=== PATIENT | female | born 2000 | race Caucasian/White ===

== ENCOUNTER 2020-02-01 00:25 | Inpatient (IN) | payer MEDICAID, OTHER ==
[~2020-02-01 00:25] MED LIST: Bupivacaine 0.25% 10 ML SDV ONE
[2020-02-01] MEDS ORDERED: Ampicillin 2 GM in Sodium Chloride 0.9% 100 ML IV ONE (00:37)
[2020-02-01] MEDS ORDERED: Lidocaine 1% 50 ML MDV INJECT ONE (00:37)
[2020-02-01] MEDS ORDERED: Sodium Chloride 0.9% 10 ML Syringe FLUSH PRN (00:37)
[2020-02-01] MEDS ORDERED: Calcium Carbonate 500 MG Tab.Chew PO PRN (00:37)
[2020-02-01] MEDS ORDERED: Ondansetron 4 MG/2 ML SDV IVPUSH PRN (00:37)
[2020-02-01] MEDS ORDERED: Oxytocin/Lactated Ringers 10 UNIT/1,000 ML BAG IV SCH ×3 (00:45→11:30)
[2020-02-01] MEDS ORDERED: Ampicillin 2 GM AdvVial IV ONE (01:11)
[2020-02-01] MEDS: Lactated Ringers 1,000 ML IV SCH ×4 (01:12→05:25)
[2020-02-01] MEDS ORDERED: Bupivacaine/fentaNYL/NS 100 ML Bag EPIDUR PRN (02:03)
[2020-02-01] MEDS ORDERED: diphenhydrAMINE 50 MG/ML SDV IVPUSH PRN (02:03)
[2020-02-01] MEDS ORDERED: fentaNYL 100 MCG/2 ML SDV EPIDUR PRN (02:03)
[2020-02-01] MEDS ORDERED: ePHEDrine 50 MG/ML SDV IVPUSH PRN (02:03)
--- NOTE | 2020-02-01 02:30 | PCM.PREANE ---
Preanesthetic Assessment - Procedure Proposed Procedure: epidural - Anesthesia/Transfusion/Family Hx Anesthesia History: Prior Anesthesia Without Reaction Family History of Anesthesia Reaction: No Transfusion History: No Prior Transfusion(s) - Review of Systems General: Fatigue Pulmonary: No Symptoms Cardiovascular: No Symptoms Gastrointestinal: Abdominal Pain (labor) Neurological: No Symptoms Other: Reports: None - Physical Assessment ASA Class: 2 Mental Status: Alert & Oriented x3 Airway Class: Mallampati = 1 Dentition: Reports: Normal Dentition Thyro-Mental Finger Breadths: 3 Mouth Opening Finger Breadths: 3 ROM/Head Extension: Full Lungs: Clear to Auscultation, Normal Respiratory Effort Cardiovascular: Regular Rate, Regular Rhythm - Lab Values: Laboratory Last Values WBC 11.99 K/mm3 (3.98-10.04) H 02/01/20 01:12 RBC 3.83 M/mm3 (3.98-5.22) L 02/01/20 01:12 Hgb 10.1 gm/dl (11.2-15.7) L 02/01/20 01:12 Hct 33.2 % (34.1-44.9) L 02/01/20 01:12 MCV 86.7 fl (79.4-94.8) 02/01/20 01:12 MCH 26.4 pg (25.6-32.2) 02/01/20 01:12 MCHC 30.4 g/dl (32.2-35.5) L 02/01/20 01:12 RDW Std Deviation 49.8 fL (36.4-46.3) H 02/01/20 01:12 Plt Count 212 K/mm3 (182-369) 02/01/20 01:12 MPV 13.0 fl (9.4-12.3) H 02/01/20 01:12 Neut % (Auto) 68.7 % (34.0-71.1) 02/01/20 01:12 Lymph % (Auto) 23.0 % (19.3-51.7) 02/01/20 01:12 [place] % (Auto) 6.8 % (4.7-12.5) 02/01/20 01:12 Eos % (Auto) 1.1 (0.7-5.8) 02/01/20 01:12 Baso % (Auto) 0.3 % (0.1-1.2) 02/01/20 01:12 Neut # (Auto) 8.25 K/mm3 (1.56-6.13) H 02/01/20 01:12 Lymph # (Auto) 2.76 K/mm3 (1.18-3.74) 02/01/20 01:12 [place] # (Auto) 0.81 K/mm3 (0.24-0.36) H 02/01/20 01:12 Eos # (Auto) 0.13 K/mm3 (0.04-0.36) 02/01/20 01:12 Baso # (Auto) 0.03 K/mm3 (0.01-0.08) 02/01/20 01:12 Urine Opiates Screen Negative (LSPVIN=941) 02/01/20 02:00 Ur Buprenorphine Scrn Negative (CUTOFF=10) 02/01/20 02:00 Ur Oxycodone Screen Negative (RMW2NA=961) 02/01/20 02:00 Urine Methadone Screen Negative (SMRAFY=214) 02/01/20 02:00 Ur Propoxyphene Screen Negative (JJHXPZ=043) 02/01/20 02:00 Ur Barbiturates Screen Negative (WWIELA=900) 02/01/20 02:00 Ur Tricyclics Screen Negative (GWOPIA=758) 02/01/20 02:00 Ur Phencyclidine Scrn Negative (CUTOFF=25) 02/01/20 02:00 Ur Amphetamine Screen Negative (KZUQTA=500) 02/01/20 02:00 U Methamphetamines Scrn Negative (YBEGBF=004) 02/01/20 02:00 U Benzodiazepines Scrn Negative (EFBXTI=652) 02/01/20 02:00 U Cocaine Metab Screen Negative (IKYQFO=176) 02/01/20 02:00 U Marijuana (THC) Screen Presumptive positive (CUTOFF=50) H 02/01/20 02:00 - Allergies Allergies/Adverse Reactions: Allergies Allergy/AdvReac Type Severity Reaction Status Date / Time No Known Allergies Allergy Verified 02/01/20 01:12 - Anesthesia Plan Pre-Op Medication Ordered: None - Acknowledgements Anesthesia Type Planned: Epidural Pt an Appropriate Candidate for the Planned Anesthesia: Yes Alternatives and Risks of Anesthesia Discussed w Pt/Guardian: Yes Pt/Guardian Understands and Agrees with Anesthesia Plan: Yes PreAnesthesia Questionnaire Gastrointestinal History: Reports: GERD - CURRENT (IN HOUSE) MEDS Current Meds: Current Medications Calcium Carbonate/Glycine (Tums) 1,000 mg PO Q2H PRN PRN Reason: Indigestion Diphenhydramine HCl (Benadryl) 25 mg IVPUSH Q6H PRN PRN Reason: Itching Ephedrine Sulfate (Ephedrine Sulfate) 5 mg IVPUSH ASDIRECTED PRN PRN Reason: HYPOTENTSION Fentanyl (Sublimaze) 100 mcg EPIDUR Q3H PRN PRN Reason: Pain Last Admin: 02/01/20 02:15 Dose: 100 mcg Fentanyl/Bupivacaine HCl (Fentanyl/Bupivacaine/Ns 2 Mcg-0.125% 100 Ml) 0 ml EPIDUR CONTINUOUS PRN PRN Reason: Pain Last Admin: 02/01/20 02:15 Dose: 100 ml Ampicillin Sodium 1 gm/ Sodium (Chloride) 100 mls @ 200 mls/hr IV Q4H SACHIN Lactated Ringer's (Ringers, Lactated) 1,000 mls @ 100 mls/hr IV ASDIRECTED SACHIN Last Admin: 02/01/20 02:20 Dose: 999 mls/hr Oxytocin/Lactated Ringer's (Pitocin In Lr 10 Units/1,000 Ml) 10 unit in 1,000 mls @ 500 mls/hr IV .CONTINUOUS SACHIN Ondansetron HCl (Zofran) 4 mg IVPUSH Q4H PRN PRN Reason: Nausea/Vomiting Sodium Chloride (Saline Flush) 10 ml FLUSH ASDIRECTED PRN PRN Reason: Keep Vein Open Discontinued Medications Ampicillin Sodium (Ampicillin) Confirm Administered Dose 2 gm IV .STK-MED ONE Stop: 02/01/20 01:12 Last Admin: 02/01/20 02:07 Dose: Not Given Ampicillin Sodium 2 gm/ Sodium (Chloride) 100 mls @ 200 mls/hr IV ONETIME ONE Stop: 02/01/20 01:06 Last Admin: 02/01/20 01:16 Dose: 200 mls/hr Lidocaine HCl (Xylocaine 1%) 20 ml INJECT ONETIME ONE Stop: 02/01/20 00:38
[2020-02-01] MEDS: Ampicillin 1 GM in Sodium Chloride 0.9% 100 ML IV SCH ×2 (05:03→16:31)
--- NOTE | 2020-02-01 10:09 | PCM.LDHP ---
L&D History of Present Illness - General Date of Service: 02/01/20 Admit Problem/Dx: Patient Status Order with Admit Dx/Problem 02/01/20 00:37 Patient Status [ADT] Routine Admission Diagnosis/Problem Admission Diagnosis/Problem Term Source of Information: Patient History Limitations: Reports: No Limitations - History of Present Illness Introduction:: 19 year old here with SROM. No contractions. Sparse care. One appointment in [place] followed by diagnosis of syphilis , hep c, trichomonas, and chlamydia. All treated. Syphilis treated during admissions x 3 at [facility]. 10/16/2020, 10/24/2020 and 11/01/2020. No titers on records from their results. Our titer on 01/21 was 1:16 History of drug use, social concerns. Does not have custody of other three children. Currently admits to marijuana use but no longer reports using methamphetamine or IV drugs. 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: Hematologic History: Reports: Anemia - Infectious Disease History Infectious Disease History: Reports: Hepatitis C - Past Surgical History Female Surgical History: Reports: Other (See Below) Other Female Surgeries/Procedures: Exploratory laproscopy to remove Mirena Social & Family History - Family History Family Medical History: Noncontributory - Tobacco Use Smoking Status *Q: Current Every Day Smoker Years of Tobacco use: 5 Packs/Tins Daily: 0.5 Used Tobacco, but Quit: No - Recreational Drug Use Recreational Drug Use: Yes Drug Use in Last 12 Months: Yes Recreational Drug Type: Reports: Marijuana/Hashish, Methamphetamine Recreational Drug Use Frequency: Patient Refuses To Answer H&P Review of Systems - Review of Systems: Review Of Systems: See Below General: Reports: No Symptoms HEENT: Reports: No Symptoms Pulmonary: Reports: No Symptoms Cardiovascular: Reports: No Symptoms Gastrointestinal: Reports: No Symptoms Genitourinary: Reports: No Symptoms Musculoskeletal: Reports: No Symptoms Skin: Reports: No Symptoms Psychiatric: Reports: No Symptoms Neurological: Reports: No Symptoms Hematologic/Lymphatic: Reports: No Symptoms Immunologic: Reports: No Symptoms L&D Exam - Exam Exam: See Below - Vital Signs Vital Signs: Last Vital Signs Temp 37.2 C 02/01/20 01:00 Pulse 80 02/01/20 01:00 Resp 16 02/01/20 01:00 BP 139/85 02/01/20 01:00 Pulse Ox 97 02/01/20 01:00 Weight: 73.164 kg - OB Specific Contraction Intensity: absent Movement: Active Heart Tones: Present Heart Rate (FHR) Variability: Moderate (6-25 bmp) Presentation: Vertex - Truong Score Truong Score Cervix Position: Anterior Truong Score Consistency: Soft Truong Score Effacement: 51-70% Truogn Score Dilation: 3-4 cm Truong Score Infant's Station: -2 Truong Score Total: 9 - Exam General: Alert, Oriented HEENT: PERRLA, Conjunctiva Clear, EACs Clear, EOMI, Hearing Intact, Mucosa Moist & [place], Nares Patent, Normal Nasal Septum, Posterior Pharynx Clear, TMs Clear Neck: Supple, Trachea Midline Lungs: Clear to Auscultation, Normal Respiratory Effort Cardiovascular: Regular Rate, Regular Rhythm GI/Abdominal Exam: Normal Bowel Sounds, Soft, Non-Tender, No Organomegaly, No Distention, No Abnormal Bruit, No Mass, Pelvis Stable Back Exam: Normal Inspection, Full Range of Motion Extremities: Normal Inspection, Normal Range of Motion, Non-Tender, No Pedal Edema, Normal Capillary Refill Skin: Warm, Dry, Intact Neurological: Cranial Nerves Intact, Reflexes Equal Bilateral Psychiatric: Alert, Normal Affect, Normal Mood - Patient Data Lab Results Last 24 hrs: Laboratory Results - last 24 hr 02/01/20 02/01/20 02/01/20 Range/Units 01:12 01:12 01:12 WBC 11.99 H (3.98-10.04) K/mm3 RBC 3.83 L (3.98-5.22) M/mm3 Hgb 10.1 L (11.2-15.7) gm/dl Hct 33.2 L (34.1-44.9) % MCV 86.7 (79.4-94.8) fl MCH 26.4 (25.6-32.2) pg MCHC 30.4 L (32.2-35.5) g/dl RDW Std Deviation 49.8 H (36.4-46.3) fL Plt Count 212 (182-369) K/mm3 MPV 13.0 H (9.4-12.3) fl Neut % (Auto) 68.7 (34.0-71.1) % Lymph % (Auto) 23.0 (19.3-51.7) % [place] % (Auto) 6.8 (4.7-12.5) % Eos % (Auto) 1.1 (0.7-5.8) Baso % (Auto) 0.3 (0.1-1.2) % Neut # (Auto) 8.25 H (1.56-6.13) K/mm3 Lymph # (Auto) 2.76 (1.18-3.74) K/mm3 [place] # (Auto) 0.81 H (0.24-0.36) K/mm3 Eos # (Auto) 0.13 (0.04-0.36) K/mm3 Baso # (Auto) 0.03 (0.01-0.08) K/mm3 Urine Opiates Screen (TQLSPL=842) Ur Buprenorphine Scrn (CUTOFF=10) Ur Oxycodone Screen (PCL7QC=731) Urine Methadone Screen (JDDVYF=493) Ur Propoxyphene Screen (PJSBUR=646) Ur Barbiturates Screen (YCHZXI=381) Ur Tricyclics Screen (FRZRKJ=651) Ur Phencyclidine Scrn (CUTOFF=25) Ur Amphetamine Screen (KIKJVG=277) U Methamphetamines Scrn (XZUJWC=854) U Benzodiazepines Scrn (YCCONL=896) U Cocaine Metab Screen (SLORFG=879) U Marijuana (THC) Screen (CUTOFF=50) RPR Titer 1:8 (1:2) RPR Reactive H (NONREACTIVE) 02/01/20 Range/Units 02:00 WBC (3.98-10.04) K/mm3 RBC (3.98-5.22) M/mm3 Hgb (11.2-15.7) gm/dl Hct (34.1-44.9) % MCV (79.4-94.8) fl MCH (25.6-32.2) pg MCHC (32.2-35.5) g/dl RDW Std Deviation (36.4-46.3) fL Plt Count (182-369) K/mm3 MPV (9.4-12.3) fl Neut % (Auto) (34.0-71.1) % Lymph % (Auto) (19.3-51.7) % [place] % (Auto) (4.7-12.5) % Eos % (Auto) (0.7-5.8) Baso % (Auto) (0.1-1.2) % Neut # (Auto) (1.56-6.13) K/mm3 Lymph # (Auto) (1.18-3.74) K/mm3 [place] # (Auto) (0.24-0.36) K/mm3 Eos # (Auto) (0.04-0.36) K/mm3 Baso # (Auto) (0.01-0.08) K/mm3 Urine Opiates Screen Negative (IPVAVD=041) Ur Buprenorphine Scrn Negative (CUTOFF=10) Ur Oxycodone Screen Negative (NZY6IP=015) Urine Methadone Screen Negative (LRERRZ=936) Ur Propoxyphene Screen Negative (GIAWWM=979) Ur Barbiturates Screen Negative (TPMXUI=003) Ur Tricyclics Screen Negative (DNUFMT=938) Ur Phencyclidine Scrn Negative (CUTOFF=25) Ur Amphetamine Screen Negative (XNVVHN=127) U Methamphetamines Scrn Negative (MTUQMP=896) U Benzodiazepines Scrn Negative (GCQWBT=009) U Cocaine Metab Screen Negative (LWOEHX=156) U Marijuana (THC) Screen Presumptive positive H (CUTOFF=50) RPR Titer (1:2) RPR (NONREACTIVE) Result Diagrams: 02/01/20 01:12 Problem List Initiated/Reviewed/Updated: Yes Orders Last 24hrs: Active Orders 24 hr Category Date Time Status Patient Status [ADT] Routine ADT 02/01/20 00:37 Active Activity as Tolerated [RC] PFP Care 02/01/20 00:37 Active Communication Order [RC] ASDIRECTED Care 02/01/20 00:37 Active Communication Order [RC] ASDIRECTED Care 02/01/20 02:03 Active Communication Order [RC] ASDIRECTED Care 02/01/20 03:01 Active Communication Order [RC] ASDIRECTED Care 02/01/20 03:01 Active Communication Order [RC] ASDIRECTED Care 02/01/20 03:01 Active Notify Provider [RC] ASDIRECTED Care 02/01/20 02:03 Active Notify Provider [RC] ASDIRECTED Care 02/01/20 03:01 Active Notify Provider [RC] PFP Care 02/01/20 00:37 Active Notify Provider [RC] PRN Care 02/01/20 00:37 Active Peripheral IV Care [RC] . DIRECTED Care 02/01/20 00:38 Active Urinary Catheter Assessment [RC] ASDIRECTED Care 02/01/20 00:37 Active Consult to Case Management/Office Systems Technology Instructor [CONS] Cons 02/01/20 07:59 Active Routine Regular Diet [DIET] Diet 02/01/20 Breakfast Active Ampicillin 1 gm Med 02/01/20 05:00 Active Sodium Chloride 0.9% [Normal Saline] 100 ml IV Q4H Bupivacaine/fentaNYL/NS [fentaNYL/Bupivacaine/NS 2 MCG- Med 02/01/20 02:03 Active 0.125% 100 ML] 0 ml EPIDUR CONTINUOUS PRN Calcium Carbonate [Tums] Med 02/01/20 00:37 Active 1,000 mg PO Q2H PRN Lactated Ringers [Ringers, Lactated] 1,000 ml Med 02/01/20 00:45 Active IV ASDIRECTED Ondansetron [Zofran] Med 02/01/20 00:37 Active 4 mg IVPUSH Q4H PRN Oxytocin/Lactated Ringers [Pitocin in LR 10 Units/1,000 Med 02/01/20 00:45 Active ML] 10 unit in 1,000 ml IV .CONTINUOUS Oxytocin/Lactated Ringers [Pitocin in LR 10 Units/1,000 Med 02/01/20 03:00 Active ML] 10 unit in 1,000 ml IV TITRATE Sodium Chloride 0.9% [Saline Flush] Med 02/01/20 00:37 Active 10 ml FLUSH ASDIRECTED PRN diphenhydrAMINE [Benadryl] Med 02/01/20 02:03 Active 25 mg IVPUSH Q6H PRN ePHEDrine [ePHEDrine sulfate] Med 02/01/20 02:03 Active 5 mg IVPUSH ASDIRECTED PRN fentaNYL [Sublimaze] Med 02/01/20 02:03 Active 100 mcg EPIDUR Q3H PRN Electronic Heart Tones Ext w TOCO [WOMSER] Oth 02/01/20 00:37 Ordered Routine Electronic Heart Tones Internal [WOMSER] Per Unit Oth 02/01/20 00:37 Ordered Routine Peripheral IV Insertion Adult [OM.PC] Routine Oth 02/01/20 00:37 Ordered Resuscitation Status Routine Resus Stat 02/01/20 00:37 Ordered Medication Orders Calcium Carbonate/Glycine (Tums) 1,000 mg PO Q2H PRN PRN Reason: Indigestion Diphenhydramine HCl (Benadryl) 25 mg IVPUSH Q6H PRN PRN Reason: Itching Ephedrine Sulfate (Ephedrine Sulfate) 5 mg IVPUSH ASDIRECTED PRN PRN Reason: HYPOTENTSION Fentanyl (Sublimaze) 100 mcg EPIDUR Q3H PRN PRN Reason: Pain Last Admin: 02/01/20 02:15 Dose: 100 mcg Fentanyl/Bupivacaine HCl (Fentanyl/Bupivacaine/Ns 2 Mcg-0.125% 100 Ml) 0 ml EPIDUR CONTINUOUS PRN PRN Reason: Pain Last Admin: 02/01/20 02:15 Dose: 100 ml Ampicillin Sodium 1 gm/ Sodium (Chloride) 100 mls @ 200 mls/hr IV Q4H SAHCIN Last Admin: 02/01/20 05:03 Dose: 200 mls/hr Lactated Ringer's (Ringers, Lactated) 1,000 mls @ 100 mls/hr IV ASDIRECTED SACHIN Last Admin: 02/01/20 05:25 Dose: 40 mls/hr Infusion: 02/01/20 03:21 Dose: 999 mls/hr Admin: 02/01/20 02:20 Dose: 999 mls/hr Infusion: 02/01/20 02:20 Dose: 999 mls/hr Admin: 02/01/20 01:46 Dose: 999 mls/hr Infusion: 02/01/20 01:46 Dose: 999 mls/hr Admin: 02/01/20 01:12 Dose: 999 mls/hr Oxytocin/Lactated Ringer's (Pitocin In Lr 10 Units/1,000 Ml) 10 unit in 1,000 mls @ 500 mls/hr IV .CONTINUOUS SACHIN Oxytocin/Lactated Ringer's (Pitocin In Lr 10 Units/1,000 Ml) 10 unit in 1,000 mls @ 12 mls/hr IV TITRATE SACHIN; Protocol Last Titration: 02/01/20 06:50 Dose: 16 munits/min, 96 mls/hr Titration: 02/01/20 06:16 Dose: 14 munits/min, 84 mls/hr Titration: 02/01/20 05:42 Dose: 12 munits/min, 72 mls/hr Titration: 02/01/20 05:10 Dose: 10 munits/min, 60 mls/hr Titration: 02/01/20 04:46 Dose: 8 munits/min, 48 mls/hr Titration: 02/01/20 04:16 Dose: 6 munits/min, 36 mls/hr Titration: 02/01/20 03:42 Dose: 4 munits/min, 24 mls/hr Admin: 02/01/20 03:10 Dose: 2 munits/min, 12 mls/hr Ondansetron HCl (Zofran) 4 mg IVPUSH Q4H PRN PRN Reason: Nausea/Vomiting Sodium Chloride (Saline Flush) 10 ml FLUSH ASDIRECTED PRN PRN Reason: Keep Vein Open Assessment/Plan Comment:: Term SROM. - Pitocin. UDS, RPR with titer. 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 Anticipate
--- NOTE | 2020-02-01 10:11 | PCM.SN ---
- Free Text/Narrative Note: Stage I - Patient presented with SROM. Pitocin induction. Epidural. Progressed to complete. Stage II - of viable female, weight 3200, 8/9 APGARS at 0910. Head delivered in controlled manner over intact perineum. Body and shoulders without difficulty. Positive cry. To maternal abdomen. Cord clamped and cut. STage III - of intact placenta. 3vc. No laceration.
[2020-02-01] MEDS ORDERED: Witch Hazel Medicated Pads 40/Jar TOP PRN (10:34)
[2020-02-01] MEDS ORDERED: Benzocaine/Menthol 20%-0.5% Spray 56 GM Canister TOP PRN (10:41)
[2020-02-01] MEDS ORDERED: Misoprostol 200 MCG Tab ONE (11:26)
[2020-02-01] MEDS ORDERED: fentaNYL 100 MCG/2 ML SDV IVPUSH PRN (14:17)
--- NOTE | 2020-02-01 14:45 | PCM.SN ---
- Free Text/Narrative Note: Called to see patient with increased bleeding. Pain medication - fentanyl given. External examination - no laceration. Bimanual with significant clot in lower uterine segment. Patient with emesis after evacuation. Better after.
[2020-02-01] MEDS: Ibuprofen 600 MG Tab PO PRN ×2 (15:55→21:07)
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
[2020-02-02] MEDS: Ibuprofen 600 MG Tab PO PRN ×2 (08:19→21:16)
--- NOTE | 2020-02-02 09:28 | PCM48HPAN ---
Post Anesthesia Note - EVALUATION WITHIN 48HRS OF ANESTHETIC Vital Signs in Normal Range: Yes Patient Participated in Evaluation: Yes Respiratory Function Stable: Yes Airway Patent: Yes Cardiovascular Function Stable: Yes (Hgb decreased. Will receive blood) Hydration Status Stable: Yes Pain Control Satisfactory: Yes Nausea and Vomiting Control Satisfactory: Yes Mental Status Recovered: Yes Vital Signs: Last Vital Signs Temp 97.7 F 02/02/20 08:20 Pulse 104 H 02/02/20 08:20 Resp 16 02/02/20 05:54 BP 118/79 02/02/20 08:20 Pulse Ox 99 02/02/20 08:20
[2020-02-02] MEDS: Sodium Chloride 0.9% 250 ML IV SCH ×2 (10:24→21:18)
== END 2020-02-03 12:20 | disposition home or self-care (01) | DRG 806 ==
LOC: JD.OBCHECK 00:25 → JD.OB 00:37 → OBSVTOIN 09:09 → JD.OB 09:10
PROVIDERS: ADMIT Obstetrics & Gynecology; ATTEND Obstetrics & Gynecology
PROC: 10E0XZZ Delivery of Products of Conception, External Approach (ICD-10-PCS; principal; 2020-02-01)
PROC: 3E0R3BZ Introduction of Anesthetic Agent into Spinal Canal, Percutaneous Approach (ICD-10-PCS; 2020-02-01)
PROC: 3E0334Z Introduction of Serum, Toxoid and Vaccine into Peripheral Vein, Percutaneous Approach (ICD-10-PCS; 2020-02-01)
DX: O99.02 Anemia complicating childbirth (principal); O72.1 Other immediate postpartum hemorrhage; Z37.0 Single live birth; D64.9 Anemia, unspecified; O99.62 Diseases of the digestive system complicating childbirth; K21.9 Gastro-esophageal reflux disease without esophagitis; O99.334 Smoking (tobacco) complicating childbirth; F17.200 Nicotine dependence, unspecified, uncomplicated; O26.893 Other specified pregnancy related conditions, third trimester; Z3A.39 39 weeks gestation of pregnancy; Z67.91 Unspecified blood type, Rh negative
CPT/HCPCS: 01967; 36415; 36430; 51702; 59025; 59409; 80306; 85025; 85027; 85461; 86592; 86593; 86780; 86850; 86900; 86901; 86922; A9270-GY; J0290; J2590; J2790; J3010; J3490; J7050; J7120; P9016

== ENCOUNTER 2020-03-24 08:20 | Observation (INO) | payer MEDICAID ==
--- NOTE | 2020-03-24 08:36 | EDM.PDOC ---
ED HPI GENERAL MEDICAL PROBLEM - General Chief Complaint: ACCOUNTS PAYABLE ACCOUNTANT Problem Stated Complaint: [facility] Time Seen by Provider: 03/24/20 08:23 Source of Information: Reports: Patient (after resuscitation), EMS History Limitations: Reports: No Limitations - History of Present Illness INITIAL COMMENTS - FREE TEXT/NARRATIVE: Ms. William is a very pleasant 20-year-old woman with a past medical history , according to prior medical records, of anemia and untreated hepatitis C, who is now brought to the ED after being found passed out by the toilet by her boyfriend, with a lot of blood on the floor. According to medical records, the patient had a vaginal delivery on 02/01/2020. Review of prior medical records indicates that her initial H/H on 02/01/2020 was 10.1/33.2, but a subsequent H/H that day was 7.3/24.4. Her H/H on 02/02/2020 was down to 5.2/17.7 but then a subsequent that day was up to 6.3/20.2, then up to 7.0/22.8. We do not have any subsequent lab results, however, EMS tells me that her Hgb yesterday was around 6, accordingt to the patient's boyfriend. EMS tells me that they had to perform a sternal rub in order to get the patient to wake up. Her BP in the field was in the 80s. Here in the ED, the patient's initial BP is 99/57, however, she is not tachycardic. She is saturating 100% on room air. She opens her eyes to verbal command, but is not answering questions at this time. Review of the patient's H&P from 02/01/2020 indicates that she has a history of methamphetamine use, and her urine drug screen at that time was positive for marijuana. Her ACCOUNTS PAYABLE ACCOUNTANT indicated that she has had 3 prior children that are not in her custody, and that social issues persist. The patient's ACCOUNTS PAYABLE ACCOUNTANT is Dr. Lulú Sunshine. Treatments SUPERINTENDENT ELECTRIC [employer]OWER: Reports: IV/IO - Related Data Allergies Allergy/AdvReac Type Severity Reaction Status Date / Time No Known Allergies Allergy Verified 03/24/20 16:37 Home Meds: Home Meds Ferrous Sulfate [Iron] 325 mg PO DAILY 02/01/20 [History] Past Medical History : 4 Para: 4 Hematologic History: Reports: Anemia - Infectious Disease History Infectious Disease History: Reports: Hepatitis C (untreated) - Past Surgical History HEENT Surgical History: Reports: Oral Surgery ( wisdom teeth extraction) Female Surgical History: Reports: Other (See Below) (Exploratory laparoscopy to remove Mirena) Social & Family History - Family History Family Medical History: Noncontributory - Tobacco Use Smoking Status *Q: Current Every Day Smoker Years of Tobacco use: 8 Packs/Tins Daily: 0.1 Packs/Tins Daily Comment: Down from 1 ppd - Alcohol Use Alcohol Use History: Yes Alcohol Use Frequency: Socially (when not pregnent) - Recreational Drug Use Recreational Drug Use: Yes Drug Use in Last 12 Months: Yes Recreational Drug Type: Reports: Marijuana/Hashish (last smoked early Feb 2020) , Methamphetamine (last injected Sep 2019) - Living Situation & Occupation Living situation: Reports: Single, with Family Occupation: Unemployed ED ROS GENERAL - Review of Systems Review Of Systems: Comprehensive ROS is negative, except as noted in HPI. ED EXAM, GENERAL - Physical Exam Exam: See Below Exam Limited By: Physical Impairment (lethargic) General Appearance: Lethargic, Thin, Other (Pale) Eye Exam: Bilateral Eye: Normal Inspection Ears: Normal External Exam, Hearing Grossly Normal Nose: Normal Inspection Throat/Mouth: Normal Inspection, Normal Lips, Normal Voice, No Airway Compromise Head: Atraumatic, Normocephalic Neck: Normal Inspection, Full Range of Motion Respiratory/Chest: No Respiratory Distress, Lungs Clear, Normal Breath Sounds, No Accessory Muscle Use Cardiovascular: Normal Peripheral Pulses, Regular Rate, Rhythm, No Edema, No Gallop, No JVD, No Murmur, No Rub Peripheral Pulses: 2+: Radial (L), Radial (R) GI/Abdominal: Normal Bowel Sounds, Soft, Non-Tender, No Organomegaly, No Distention, No Abnormal Bruit, No Mass (Female) Exam: Deferred Rectal (Female) Exam: Deferred Extremities: Normal Inspection, Normal Range of Motion, No Pedal Edema Neurological: No Motor/Sensory Deficits Skin Exam: Warm, Dry, Intact, No Rash, Pallor Course - Vital Signs Last Recorded V/S: Last Vital Signs Temp 36.9 C 03/24/20 16:00 Pulse 48 L 03/24/20 16:00 Resp 15 03/24/20 16:00 BP 125/65 03/24/20 16:00 Pulse Ox 100 03/24/20 16:00 - Orders/Labs/Meds Orders: Active Orders 24 hr Category Date Time Status Patient Status [ADT] Routine ADT 03/24/20 13:30 Active Cooling Warming Measures [RC] ASDIRECTED Care 03/24/20 15:08 Active Notify Provider [RC] ASDIRECTED Care 03/24/20 15:08 Active Oxygen Therapy [RC] ASDIRECTED Care 03/24/20 15:08 Active Pulse Oximetry [RC] ASDIRECTED Care 03/24/20 15:08 Active ANTIBODY IDENTIFICATION [BBK] Stat Lab 03/24/20 08:49 Results FRESH FROZEN PLASMA [BBK] Stat Lab 03/24/20 08:49 Results RED BLOOD CELLS LP [BBK] Stat Lab 03/24/20 08:49 Results TYPE AND SCREEN [BBK] Stat Lab 03/24/20 08:49 Results fentaNYL [Sublimaze] Med 03/24/20 15:08 Active 50 mcg IVPUSH Q5M PRN Schedule Procedure [COMM] Stat Oth 03/24/20 13:27 Ordered Transfuse PRBC [Transfuse Red Blood Cells] [COMM] Stat Oth 03/24/20 08:25 Ordered Medication Orders Fentanyl (Sublimaze) 50 mcg IVPUSH Q5M PRN PRN Reason: Pain Stop: 03/24/20 19:00 Last Admin: 03/24/20 15:14 Dose: 50 mcg Ibuprofen (Motrin) 600 mg PO Q6H PRN PRN Reason: Pain (mild 1-3) Stop: 03/24/20 19:00 Oxycodone/Acetaminophen (Percocet 325-5 Mg) 2 tab PO Q4H PRN PRN Reason: Pain (severe 7-10) Stop: 03/24/20 19:00 Last Admin: 03/24/20 16:27 Dose: 2 tab Oxycodone/Acetaminophen (Percocet 325-5 Mg) 1 tab PO Q4H PRN PRN Reason: Pain (moderate 4-6) Stop: 03/24/20 19:00 Labs: Laboratory Tests 03/24/20 03/24/20 03/24/20 Range/Units 08:49 08:49 08:49 WBC 5.44 (3.98-10.04) K/mm3 RBC 2.33 L (3.98-5.22) M/mm3 Hgb 6.1 L* (11.2-15.7) gm/dl Hct 21.0 L (34.1-44.9) % MCV 90.1 (79.4-94.8) fl MCH 26.2 (25.6-32.2) pg MCHC 29.0 L (32.2-35.5) g/dl RDW Std Deviation 45.0 (36.4-46.3) fL Plt Count 237 (182-369) K/mm3 MPV 10.5 (9.4-12.3) fl Neutrophils % (Manual) 55 (40-60) % Band Neutrophils % 0 (0-10) % Lymphocytes % (Manual) 36 (20-40) % Atypical Lymphs % 0 % Monocytes % (Manual) 7 (2-10) % Eosinophils % (Manual) 2 (0.7-5.8) % Basophils % (Manual) 0 L (0.1-1.2) Platelet Estimate Adequate Hypochromasia 2+ moderate Anisocytosis 1+ slight RBC Morph Comment Not Reportable PT (9.7-12.0) SECONDS INR APTT 31 (22-31) SECONDS Sodium 142 (136-145) mEq/L Potassium 4.0 (3.5-5.1) mEq/L Chloride 108 H (98-107) mEq/L Carbon Dioxide 24 (21-32) mEq/L Anion Gap 14.0 (5-15) BUN 6 L (7-18) mg/dL Creatinine 0.7 (0.55-1.02) mg/dL Est Cr Clr Drug Dosing TNP Estimated GFR (MDRD) > 60 (>60) mL/min BUN/Creatinine Ratio 8.6 L (14-18) Glucose 89 (74-106) mg/dL Calcium 7.9 L (8.5-10.1) mg/dL Magnesium 1.6 L (1.8-2.4) mg/dl Total Bilirubin 0.1 L (0.2-1.0) mg/dL AST 36 (15-37) U/L ALT 107 H (14-59) U/L Alkaline Phosphatase 84 (46-116) U/L Total Protein 5.9 L (6.4-8.2) g/dl Albumin 2.8 L (3.4-5.0) g/dl Globulin 3.1 gm/dL Albumin/Globulin Ratio 0.9 L (1-2) Urine Opiates Screen (GKGCPR=692) Ur Buprenorphine Scrn (CUTOFF=10) Ur Oxycodone Screen (HIT9KM=878) Urine Methadone Screen (GPHOBX=679) Ur Propoxyphene Screen (PUYTRH=206) Ur Barbiturates Screen (XAXUZI=872) Ur Tricyclics Screen (ERQNDL=914) Ur Phencyclidine Scrn (CUTOFF=25) Ur Amphetamine Screen (SQAMIG=673) U Methamphetamines Scrn (XSFSQR=648) U Benzodiazepines Scrn (PJXKSH=015) U Cocaine Metab Screen (LIPTEL=462) U Marijuana (THC) Screen (CUTOFF=50) Blood Type Gel Antibody Screen Crossmatch 03/24/20 03/24/20 03/24/20 Range/Units 08:49 08:49 09:40 WBC (3.98-10.04) K/mm3 RBC (3.98-5.22) M/mm3 Hgb (11.2-15.7) gm/dl Hct (34.1-44.9) % MCV (79.4-94.8) fl MCH (25.6-32.2) pg MCHC (32.2-35.5) g/dl RDW Std Deviation (36.4-46.3) fL Plt Count (182-369) K/mm3 MPV (9.4-12.3) fl Neutrophils % (Manual) (40-60) % Band Neutrophils % (0-10) % Lymphocytes % (Manual) (20-40) % Atypical Lymphs % % Monocytes % (Manual) (2-10) % Eosinophils % (Manual) (0.7-5.8) % Basophils % (Manual) (0.1-1.2) Platelet Estimate Hypochromasia Anisocytosis RBC Morph Comment PT 11.3 (9.7-12.0) SECONDS INR 1.04 APTT (22-31) SECONDS Sodium (136-145) mEq/L Potassium (3.5-5.1) mEq/L Chloride (98-107) mEq/L Carbon Dioxide (21-32) mEq/L Anion Gap (5-15) BUN (7-18) mg/dL Creatinine (0.55-1.02) mg/dL Est Cr Clr Drug Dosing Estimated GFR (MDRD) (>60) mL/min BUN/Creatinine Ratio (14-18) Glucose (74-106) mg/dL Calcium (8.5-10.1) mg/dL Magnesium (1.8-2.4) mg/dl Total Bilirubin (0.2-1.0) mg/dL AST (15-37) U/L ALT (14-59) U/L Alkaline Phosphatase (46-116) U/L Total Protein (6.4-8.2) g/dl Albumin (3.4-5.0) g/dl Globulin gm/dL Albumin/Globulin Ratio (1-2) Urine Opiates Screen Negative (FLYSKJ=140) Ur Buprenorphine Scrn Negative (CUTOFF=10) Ur Oxycodone Screen Negative (ORZ9SR=454) Urine Methadone Screen Negative (MLXTTO=266) Ur Propoxyphene Screen Negative (DQTTUQ=723) Ur Barbiturates Screen Negative (NUKCPV=667) Ur Tricyclics Screen Negative (GHEXMU=364) Ur Phencyclidine Scrn Negative (CUTOFF=25) Ur Amphetamine Screen Negative (TTHSPK=462) U Methamphetamines Scrn Negative (JKHRPY=192) U Benzodiazepines Scrn Negative (PDYZKV=472) U Cocaine Metab Screen Negative (WMLZLA=556) U Marijuana (THC) Screen Presumptive positive H (CUTOFF=50) Blood Type O NEGATIVE Gel Antibody Screen Positive Crossmatch See Detail Meds: Medications Generic Name Dose Route Start Last Admin Trade Name Freq PRN Reason Stop Dose Admin Fentanyl 50 mcg 03/24/20 15:08 03/24/20 15:14 Sublimaze IVPUSH 03/24/20 19:00 50 mcg Q5M PRN Administration Pain Ibuprofen 600 mg 03/24/20 15:19 Motrin PO 03/24/20 19:00 Q6H PRN Pain (mild 1-3) Oxycodone/Acetaminophen 2 tab 03/24/20 15:19 03/24/20 16:27 Percocet 325-5 Mg PO 03/24/20 19:00 2 tab Q4H PRN Administration Pain (severe 7-10) Oxycodone/Acetaminophen 1 tab 03/24/20 15:19 Percocet 325-5 Mg PO 03/24/20 19:00 Q4H PRN Pain (moderate 4-6) Discontinued Medications Generic Name Dose Route Start Last Admin Trade Name Muriel PRN Reason Stop Dose Admin Cefazolin Sodium Confirm 03/24/20 14:06 Ancef Administered 03/24/20 14:07 Dose 2 gm .ROUTE .STK-MED ONE Fentanyl Confirm 03/24/20 13:53 Sublimaze Administered 03/24/20 13:54 Dose 100 mcg .ROUTE .STK-MED ONE Magnesium Sulfate 2 gm/ Premix 50 mls @ 25 mls/hr 03/24/20 09:46 03/24/20 12: 28 IV 03/24/20 11:45 25 mls/hr ONETIME ONE Administration Lidocaine HCl Confirm 03/24/20 13:58 Xylocaine-Mpf 1% Administered 03/24/20 13:59 Dose 4 mls @ as directed .ROUTE .STK-MED ONE Methylergonovine Maleate Confirm 03/24/20 14:12 Methergine Administered 03/24/20 14:13 Dose 0.2 mg .ROUTE .STK-MED ONE Midazolam HCl Confirm 03/24/20 13:53 Versed 1 Mg/Ml Administered 03/24/20 13:54 Dose 2 mg .ROUTE .STK-MED ONE Misoprostol 200 mcg 03/24/20 09:09 03/24/20 09:15 Cytotec PO 03/24/20 09:10 200 mcg ONETIME STA Administration Ondansetron HCl Confirm 03/24/20 13:52 Zofran Administered 03/24/20 13:53 Dose 4 mg .ROUTE .STK-MED ONE Propofol Confirm 03/24/20 13:52 Diprivan 20 Ml Administered 03/24/20 13:53 Dose 200 mg .ROUTE .STK-MED ONE Propofol Confirm 03/24/20 14:05 Diprivan 20 Ml Administered 03/24/20 14:06 Dose 200 mg .ROUTE .STK-MED ONE Propofol Confirm 03/24/20 14:30 Diprivan 20 Ml Administered 03/24/20 14:31 Dose 200 mg .ROUTE .STK-MED ONE Tranexamic Acid Confirm 03/24/20 14:45 Cyklokapron Administered 03/24/20 14:46 Dose 1,000 mg .ROUTE .STK-MED ONE - Re-Assessments/Exams Free Text/Narrative Re-Assessment/Exam: 03/24/20 08:34 As above, the patient has been experiencing vaginal bleeding ever since she delivered on 02/01/2020, and was found passed out next to the toilet with blood on the floor, by her boyfriend, this morning. We are told that her Hgb was around 6.0 yesterday. She is currently hypotensive, but not tachycardic. I have ordered a work-up that includes a CBC, CMP, magnesium, and coags, but in the meantime, I have also ordered the patient to be transfused 2 units of PRBCs and 2 units of FFP. I asked the petroleum laboratory technician, who is currently at the bedside , to be prepared to transfuse a 3rd and 4th unit of PRBCs, if necessary. 03/24/20 08:59 The patient's CBC is remarkable for a H/H of 6.1/21.0, with the remainder of her CBC being unremarkable. The first unit of O-neg blood is currently being transfused. Notified that the patient just vaginally passed a very large blood clot. We will endeavor to contact Dr. Sunshine. 03/24/20 09:03 Notified that we are unable to reach Dr. Sunshine. We will contact the ACCOUNTS PAYABLE ACCOUNTANT on-call, Dr. Rodriguez. 03/24/20 09:[address] Rodriguez at 09:03. He recommended that we attempt to contact Dr. Easton, and that if we are then unable to contact either Dr. Sunshine or Dr. Easton, then to call him back. In the meantime, I will order misoprostol 200 mg p.o. 03/24/20 09:[address] Sunshine at 09:11. Advised of the H/H and of the PRBC and FFP transfusions. She agreed with the misoprostol. She stated that she saw the patient yesterday, and that the patient told her that she had been bleeding more last week, but not bleeding much yesterday. Her Hgb 7.7 yesterday. She recommended that we obtain an ultrasound of the patient's uterus to evaluate the uterine contents, and she also requested a urine drug screen, which may influence the decision if the patient can be discharged or not. I will call Dr. Sunshine back with the ultrasound results. 03/24/20 09:21 Notified by Christina LABOY that the 2 units of PRBCs have been transfused. We are still waiting on the FFP. 03/24/20 09:43 The patient's CMP is remarkable for a chloride elevated at 108, and an ALT elevated at 107 with an AST normal at 36. The remainder of her CMP is unremarkable. Her magnesium level is depressed at 1.6. Her coags are within normal limits. Based on the above, I will order a 2 g Mg-rider. 03/24/20 10:13 The patient's urine drug screen is positive for marijuana, only. 03/24/20 11:46 Pelvic ultrasound is read by Dr. Delgado as: Hyperechoic area seen within the lower endometrial cavity measuring 6.2 x 3.8 x 3.7 cm. This is either due to a large clot and/or retained products of conception. No myometrial abnormality is seen. Right ovary not visualized. Left ovary appears within normal limits as seen. Impression: 1. Large hyperechoic area within the lower endometrial cavity with measurements as noted above. 2. This hyperechoic finding either represents blood clot and/or retained products of conception. 03/24/20 12:34 I reevaluated the patient. She states that she is feeling much better, in fact , she is hungry, requesting lunch. She states that her vaginal bleeding has stopped. Her current BP is 93/40, with a HR of 65, saturating 98% on room air. The first of 2 units of FFP is currently infusing. I was able to update the patient's PMHx, PSHx, ROS, and SocHx. 03/24/20 12:[address] Sunshine at 12:47. She would like to take the patient to the OR for a D&C. We will notify the OR now. Departure - Departure Time of Disposition: 12:52 Disposition: DC/Tfer to [facility] Condition: Good Clinical Impression: Marijuana smoker, Hypomagnesemia, Severe anemia, hemorrhage - Discharge Information *PRESCRIPTION DRUG MONITORING PROGRAM REVIEWED*: Not Applicable *COPY OF PRESCRIPTION DRUG MONITORING REPORT IN PATIENT DAVID: Not Applicable Sepsis Event Note - Evaluation Sepsis Screening Result: No Definite Risk - Focused Exam Vital Signs: Vital Signs Temp Temp Pulse Resp BP BP Pulse Ox 03/24/20 15:17 36.8 C 44 L 14 114/72 100 03/24/20 15:15 36.8 C 55 L 14 118/63 97 03/24/20 14:58 36.6 C 66 16 112/55 L 94 L 03/24/20 13:45 36.3 C 65 104/59 L 03/24/20 13:00 36.3 C 70 107/70 03/24/20 12:14 36.3 C 67 107/70 03/24/20 11:59 36.3 C 67 76/55 L 03/24/20 08:28 36.6 C 74 7 L 99/57 L 100 Date Exam was Performed: 03/24/20 Time Exam was Performed: 18:37 - My Orders Last 24 Hours: My Active Orders 03/24/20 08:25 Transfuse PRBC [Transfuse Red Blood Cells] [COMM] Stat 03/24/20 08:49 ANTIBODY IDENTIFICATION [BBK] Stat FRESH FROZEN PLASMA [BBK] Stat RED BLOOD CELLS LP [BBK] Stat TYPE AND SCREEN [BBK] Stat 03/24/20 13:27 Schedule Procedure [COMM] Stat 03/24/20 13:30 Patient Status [ADT] Routine - Assessment/Plan Last 24 Hours: My Active Orders 03/24/20 08:25 Transfuse PRBC [Transfuse Red Blood Cells] [COMM] Stat 03/24/20 08:49 ANTIBODY IDENTIFICATION [BBK] Stat FRESH FROZEN PLASMA [BBK] Stat RED BLOOD CELLS LP [BBK] Stat TYPE AND SCREEN [BBK] Stat 03/24/20 13:27 Schedule Procedure [COMM] Stat 03/24/20 13:30 Patient Status [ADT] Routine
[2020-03-24] MEDS ORDERED: Lactated Ringers 1,000 ML IV ONE ×2 (09:00→13:00)
[2020-03-24] MEDS ORDERED: Misoprostol 200 MCG Tab PO STA (09:09)
[2020-03-24] MEDS ORDERED: Magnesium Sulfate/Water 2 GM in Premix Bag 1 BAG IV ONE (09:46)
[2020-03-24] MEDS ORDERED: Sodium Chloride 0.9% 1,000 ML IV ONE ×3 (10:34→13:00)
--- NOTE | 2020-03-24 13:33 | PCM.HP.2 ---
H&P History of Present Illness - General Date of Service: 03/24/20 Source of Information: Patient History Limitations: Reports: No Limitations - Related Data Allergies/Adverse Reactions: Allergies Allergy/AdvReac Type Severity Reaction Status Date / Time No Known Allergies Allergy Verified 03/24/20 08:35 Home Medications: Home Meds Ferrous Sulfate [Iron] 325 mg PO DAILY 02/01/20 [History] No122/Iron/Folic Acid [ Multi Tablet] 1 each PO DAILY 02/01/20 [History] Past Medical History Gastrointestinal History: Reports: GERD BINMAN History: Reports: Hematologic History: Reports: Anemia - Infectious Disease History Infectious Disease History: Reports: Hepatitis C - Past Surgical History Female Surgical History: Reports: Other (See Below) Other Female Surgeries/Procedures: Exploratory laproscopy to remove Mirena Social & Family History - Family History Family Medical History: Noncontributory - Tobacco Use Smoking Status *Q: Never Smoker H&P Review of Systems - Review of Systems: Review Of Systems: See Below General: Reports: No Symptoms HEENT: Reports: No Symptoms Pulmonary: Reports: No Symptoms Cardiovascular: Reports: No Symptoms Gastrointestinal: Reports: No Symptoms Genitourinary: Reports: No Symptoms Musculoskeletal: Reports: No Symptoms Skin: Reports: No Symptoms Psychiatric: Reports: No Symptoms Neurological: Reports: No Symptoms Hematologic/Lymphatic: Reports: No Symptoms Immunologic: Reports: No Symptoms Exam - Exam Exam: See Below - Vital Signs Vital Signs: Last Vital Signs Temp 36.3 C 03/24/20 13:00 Pulse 70 03/24/20 13:00 Resp 7 L 03/24/20 08:28 BP 107/70 03/24/20 13:00 Pulse Ox 100 03/24/20 08:28 - Exam General: Alert, Oriented, 4 HEENT: PERRLA, Hearing Intact, Mucosa Moist & [place], Nares Patent, Normal Nasal Septum, Posterior Pharynx Clear, Conjunctiva Clear, EOMI, EACs Clear, TMs Clear Neck: Supple, Trachea Midline, 2 Lungs: Clear to Auscultation, Normal Respiratory Effort Cardiovascular: Regular Rate, Regular Rhythm GI/Abdominal Exam: Normal Bowel Sounds, Soft, Non-Tender, No Organomegaly, No Distention, No Abnormal Bruit, No Mass, Pelvis Stable Back Exam: Normal Inspection, Full Range of Motion, NT Extremities: Normal Inspection, Normal Range of Motion, Non-Tender, No Pedal Edema, Normal Capillary Refill Skin: Warm, Dry, Intact Neurological: Cranial Nerves Intact, Reflexes Equal Bilateral Neuro Extensive - Mental Status: Alert, Oriented x3, Normal Mood/Affect, Normal Cognition Neuro Extensive - Motor, Sensory, Reflexes: CN II-XII Intact, Normal Gait, Normal Reflexes Psychiatric: Alert, Normal Affect, Normal Mood - Patient Data Lab Results Last 24 hrs: Laboratory Results - last 24 hr 03/24/20 03/24/20 03/24/20 Range/Units 08:49 08:49 08:49 WBC 5.44 (3.98-10.04) K/mm3 RBC 2.33 L (3.98-5.22) M/mm3 Hgb 6.1 L* (11.2-15.7) gm/dl Hct 21.0 L (34.1-44.9) % MCV 90.1 (79.4-94.8) fl MCH 26.2 (25.6-32.2) pg MCHC 29.0 L (32.2-35.5) g/dl RDW Std Deviation 45.0 (36.4-46.3) fL Plt Count 237 (182-369) K/mm3 MPV 10.5 (9.4-12.3) fl Neutrophils % (Manual) 55 (40-60) % Band Neutrophils % 0 (0-10) % Lymphocytes % (Manual) 36 (20-40) % Atypical Lymphs % 0 % Monocytes % (Manual) 7 (2-10) % Eosinophils % (Manual) 2 (0.7-5.8) % Basophils % (Manual) 0 L (0.1-1.2) Platelet Estimate Adequate Hypochromasia 2+ moderate Anisocytosis 1+ slight RBC Morph Comment Not Reportable PT (9.7-12.0) SECONDS INR APTT 31 (22-31) SECONDS Sodium 142 (136-145) mEq/L Potassium 4.0 (3.5-5.1) mEq/L Chloride 108 H (98-107) mEq/L Carbon Dioxide 24 (21-32) mEq/L Anion Gap 14.0 (5-15) BUN 6 L (7-18) mg/dL Creatinine 0.7 (0.55-1.02) mg/dL Est Cr Clr Drug Dosing TNP Estimated GFR (MDRD) > 60 (>60) mL/min BUN/Creatinine Ratio 8.6 L (14-18) Glucose 89 (74-106) mg/dL Calcium 7.9 L (8.5-10.1) mg/dL Magnesium 1.6 L (1.8-2.4) mg/dl Total Bilirubin 0.1 L (0.2-1.0) mg/dL AST 36 (15-37) U/L ALT 107 H (14-59) U/L Alkaline Phosphatase 84 (46-116) U/L Total Protein 5.9 L (6.4-8.2) g/dl Albumin 2.8 L (3.4-5.0) g/dl Globulin 3.1 gm/dL Albumin/Globulin Ratio 0.9 L (1-2) Urine Opiates Screen (MYFEPP=032) Ur Buprenorphine Scrn (CUTOFF=10) Ur Oxycodone Screen (ARH4HL=016) Urine Methadone Screen (PRSUYO=824) Ur Propoxyphene Screen (JNXQTI=736) Ur Barbiturates Screen (ZVIBDD=010) Ur Tricyclics Screen (ZKNOYA=931) Ur Phencyclidine Scrn (CUTOFF=25) Ur Amphetamine Screen (ISGDYM=714) U Methamphetamines Scrn (GSRGMU=098) U Benzodiazepines Scrn (POAFAU=120) U Cocaine Metab Screen (UWBAKV=832) U Marijuana (THC) Screen (CUTOFF=50) Blood Type Gel Antibody Screen Crossmatch 03/24/20 03/24/20 03/24/20 Range/Units 08:49 08:49 09:40 WBC (3.98-10.04) K/mm3 RBC (3.98-5.22) M/mm3 Hgb (11.2-15.7) gm/dl Hct (34.1-44.9) % MCV (79.4-94.8) fl MCH (25.6-32.2) pg MCHC (32.2-35.5) g/dl RDW Std Deviation (36.4-46.3) fL Plt Count (182-369) K/mm3 MPV (9.4-12.3) fl Neutrophils % (Manual) (40-60) % Band Neutrophils % (0-10) % Lymphocytes % (Manual) (20-40) % Atypical Lymphs % % Monocytes % (Manual) (2-10) % Eosinophils % (Manual) (0.7-5.8) % Basophils % (Manual) (0.1-1.2) Platelet Estimate Hypochromasia Anisocytosis RBC Morph Comment PT 11.3 (9.7-12.0) SECONDS INR 1.04 APTT (22-31) SECONDS Sodium (136-145) mEq/L Potassium (3.5-5.1) mEq/L Chloride (98-107) mEq/L Carbon Dioxide (21-32) mEq/L Anion Gap (5-15) BUN (7-18) mg/dL Creatinine (0.55-1.02) mg/dL Est Cr Clr Drug Dosing Estimated GFR (MDRD) (>60) mL/min BUN/Creatinine Ratio (14-18) Glucose (74-106) mg/dL Calcium (8.5-10.1) mg/dL Magnesium (1.8-2.4) mg/dl Total Bilirubin (0.2-1.0) mg/dL AST (15-37) U/L ALT (14-59) U/L Alkaline Phosphatase (46-116) U/L Total Protein (6.4-8.2) g/dl Albumin (3.4-5.0) g/dl Globulin gm/dL Albumin/Globulin Ratio (1-2) Urine Opiates Screen Negative (LRXKNW=601) Ur Buprenorphine Scrn Negative (CUTOFF=10) Ur Oxycodone Screen Negative (NGH2PV=302) Urine Methadone Screen Negative (HROJJO=567) Ur Propoxyphene Screen Negative (ALJIDC=548) Ur Barbiturates Screen Negative (ZPQVAV=332) Ur Tricyclics Screen Negative (BPZXFL=682) Ur Phencyclidine Scrn Negative (CUTOFF=25) Ur Amphetamine Screen Negative (QBYXFQ=306) U Methamphetamines Scrn Negative (VMPGUB=371) U Benzodiazepines Scrn Negative (HHKMBJ=248) U Cocaine Metab Screen Negative (WQZTEU=213) U Marijuana (THC) Screen Presumptive positive H (CUTOFF=50) Blood Type O NEGATIVE Gel Antibody Screen Positive Crossmatch See Detail Result Diagrams: 03/24/20 08:49 03/24/20 08:49 Sepsis Event Note - Evaluation Sepsis Screening Result: No Definite Risk - Focused Exam Vital Signs: Vital Signs Temp Temp Pulse Resp BP Pulse Ox 03/24/20 13:00 36.3 C 70 107/70 03/24/20 12:14 36.3 C 67 107/70 03/24/20 11:59 36.3 C 67 76/55 L 03/24/20 08:28 36.6 C 74 7 L 99/57 L 100 Date Exam was Performed: 03/24/20 Time Exam was Performed: 13:30 Problem List Initiated/Reviewed/Updated: Yes Orders Last 24hrs: Active Orders 24 hr Category Date Time Status Pelvis Non OB Ltd [US] Stat Exams 03/24/20 09:15 Taken ANTIBODY IDENTIFICATION [BBK] Stat Lab 03/24/20 08:49 Results FRESH FROZEN PLASMA [BBK] Stat Lab 03/24/20 08:49 Results RED BLOOD CELLS LP [BBK] Stat Lab 03/24/20 08:49 Results TYPE AND SCREEN [BBK] Stat Lab 03/24/20 08:49 Results Schedule Procedure [COMM] Stat Oth 03/24/20 13:27 Ordered Transfuse PRBC [Transfuse Red Blood Cells] [COMM] Stat Oth 03/24/20 08:25 Ordered Assessment/Plan Comment:: hemorrhage and bleeding with anemia and retained clot vs poc's on ultrasound. RBA discussed and will proceed with suction dilation and curettage.
--- NOTE | 2020-03-24 13:40 | US ---
Pelvic ultrasound: Multiple real-time images were obtained transabdominally. Hyperechoic area seen within the lower endometrial cavity measuring 6.2 x 3.8 x 3.7 cm. This is either due to large blood clot and/or retained products of conception. No myometrial abnormality is seen. Right ovary not visualized. Left ovary appears within normal limits as seen. Measurements: Uterus: Length 10.7 cm, AP height 6.1 cm, transverse with 5.4 cm Left ovary: 3.0 x 2.4 x 1.6 cm Impression: 1. Large hyperechoic area within the lower endometrial cavity with measurements as noted above. 2. This hyperechoic finding either represents blood clot and/or retained products of conception. Diagnostic code #3 This report was dictated in MDT
--- NOTE | 2020-03-24 13:45 | PCM.PREANE ---
Preanesthetic Assessment - Procedure Proposed Procedure: D&C - Anesthesia/Transfusion/Family Hx Anesthesia History: Prior Anesthesia Without Reaction Family History of Anesthesia Reaction: No Transfusion History: No Prior Transfusion(s) - Review of Systems General: Fatigue, Malaise Pulmonary: No Symptoms Cardiovascular: No Symptoms Gastrointestinal: No Symptoms Neurological: No Symptoms Other: Reports: Easy Bleeding, Easy Bruising - Physical Assessment NPO Status Date: 03/24/20 NPO Status Time: 07:00 Vital Signs: Last Vital Signs Temp 36.3 C 03/24/20 13:00 Pulse 70 03/24/20 13:00 Resp 7 L 03/24/20 08:28 BP 107/70 03/24/20 13:00 Pulse Ox 100 03/24/20 08:28 Height: 1.68 m Weight: 62.142 kg ASA Class: 2E Mental Status: Alert & Oriented x3 Airway Class: Mallampati = 2 Dentition: Reports: [place](s) Thyro-Mental Finger Breadths: 3 Mouth Opening Finger Breadths: 2 ROM/Head Extension: Full Lungs: Clear to Auscultation, Normal Respiratory Effort Cardiovascular: Regular Rate, Regular Rhythm - Lab Values: Laboratory Last Values WBC 5.44 K/mm3 (3.98-10.04) 03/24/20 08:49 RBC 2.33 M/mm3 (3.98-5.22) L 03/24/20 08:49 Hgb 6.1 gm/dl (11.2-15.7) L* 03/24/20 08:49 Hct 21.0 % (34.1-44.9) L 03/24/20 08:49 MCV 90.1 fl (79.4-94.8) 03/24/20 08:49 MCH 26.2 pg (25.6-32.2) 03/24/20 08:49 MCHC 29.0 g/dl (32.2-35.5) L 03/24/20 08:49 RDW Std Deviation 45.0 fL (36.4-46.3) 03/24/20 08:49 Plt Count 237 K/mm3 (182-369) 03/24/20 08:49 MPV 10.5 fl (9.4-12.3) 03/24/20 08:49 Neutrophils % (Manual) 55 % (40-60) 03/24/20 08:49 Band Neutrophils % 0 % (0-10) 03/24/20 08:49 Lymphocytes % (Manual) 36 % (20-40) 03/24/20 08:49 Atypical Lymphs % 0 % 03/24/20 08:49 Monocytes % (Manual) 7 % (2-10) 03/24/20 08:49 Eosinophils % (Manual) 2 % (0.7-5.8) 03/24/20 08:49 Basophils % (Manual) 0 (0.1-1.2) L 03/24/20 08:49 Platelet Estimate Adequate 03/24/20 08:49 Hypochromasia 2+ moderate 03/24/20 08:49 Anisocytosis 1+ slight 03/24/20 08:49 RBC Morph Comment Not Reportable 03/24/20 08:49 PT 11.3 SECONDS (9.7-12.0) 03/24/20 08:49 INR 1.04 03/24/20 08:49 APTT 31 SECONDS (22-31) 03/24/20 08:49 Sodium 142 mEq/L (136-145) 03/24/20 08:49 Potassium 4.0 mEq/L (3.5-5.1) 03/24/20 08:49 Chloride 108 mEq/L (98-107) H 03/24/20 08:49 Carbon Dioxide 24 mEq/L (21-32) 03/24/20 08:49 Anion Gap 14.0 (5-15) 03/24/20 08:49 BUN 6 mg/dL (7-18) L 03/24/20 08:49 Creatinine 0.7 mg/dL (0.55-1.02) 03/24/20 08:49 Est Cr Clr Drug Dosing TNP 03/24/20 08:49 Estimated GFR (MDRD) > 60 mL/min (>60) 03/24/20 08:49 BUN/Creatinine Ratio 8.6 (14-18) L 03/24/20 08:49 Glucose 89 mg/dL (74-106) 03/24/20 08:49 Calcium 7.9 mg/dL (8.5-10.1) L 03/24/20 08:49 Magnesium 1.6 mg/dl (1.8-2.4) L 03/24/20 08:49 Total Bilirubin 0.1 mg/dL (0.2-1.0) L 03/24/20 08:49 AST 36 U/L (15-37) 03/24/20 08:49 ALT 107 U/L (14-59) H 03/24/20 08:49 Alkaline Phosphatase 84 U/L (46-116) 03/24/20 08:49 Total Protein 5.9 g/dl (6.4-8.2) L 03/24/20 08:49 Albumin 2.8 g/dl (3.4-5.0) L 03/24/20 08:49 Globulin 3.1 gm/dL 03/24/20 08:49 Albumin/Globulin Ratio 0.9 (1-2) L 03/24/20 08:49 Urine Opiates Screen Negative (EGTQKW=380) 03/24/20 09:40 Ur Buprenorphine Scrn Negative (CUTOFF=10) 03/24/20 09:40 Ur Oxycodone Screen Negative (MZZ5JM=594) 03/24/20 09:40 Urine Methadone Screen Negative (JKQTYP=700) 03/24/20 09:40 Ur Propoxyphene Screen Negative (HDDELO=901) 03/24/20 09:40 Ur Barbiturates Screen Negative (KMTWBF=003) 03/24/20 09:40 Ur Tricyclics Screen Negative (QAFYXB=702) 03/24/20 09:40 Ur Phencyclidine Scrn Negative (CUTOFF=25) 03/24/20 09:40 Ur Amphetamine Screen Negative (WNFOWD=222) 03/24/20 09:40 U Methamphetamines Scrn Negative (NQEUBU=594) 03/24/20 09:40 U Benzodiazepines Scrn Negative (YMHIXP=312) 03/24/20 09:40 U Cocaine Metab Screen Negative (LYIQII=169) 03/24/20 09:40 U Marijuana (THC) Screen Presumptive positive (CUTOFF=50) H 03/24/20 09:40 Blood Type O NEGATIVE 03/24/20 08:49 Gel Antibody Screen Positive 03/24/20 08:49 Crossmatch See Detail 03/24/20 08:49 - Allergies Allergies/Adverse Reactions: Allergies Allergy/AdvReac Type Severity Reaction Status Date / Time No Known Allergies Allergy Verified 03/24/20 08:35 - Blood Blood Available: Yes Product(s) Available: PRBC, Platelets - Anesthesia Plan Pre-Op Medication Ordered: None - Acknowledgements Anesthesia Type Planned: General Anesthesia Pt an Appropriate Candidate for the Planned Anesthesia: Yes Alternatives and Risks of Anesthesia Discussed w Pt/Guardian: Yes Pt/Guardian Understands and Agrees with Anesthesia Plan: Yes PreAnesthesia Questionnaire Gastrointestinal History: Reports: GERD 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: Hematologic History: Reports: Anemia - Infectious Disease History Infectious Disease History: Reports: Hepatitis C - Past Surgical History Female Surgical History: Reports: Other (See Below) Other Female Surgeries/Procedures: Exploratory laproscopy to remove Mirena - SUBSTANCE USE Smoking Status *Q: Current Every Day Smoker Tobacco Use Within Last Twelve Months: Vaping Second Hand Smoke Exposure: No Days Per Week of Alcohol Use: 0 Number of Drinks Per Day: 0 Total Drinks Per Week: 0 Recreational Drug Type: Reports: Marijuana/Hashish (test positive), Methamphetamine ("in past") - HOME MEDS Home Medications: Home Meds Ferrous Sulfate [Iron] 325 mg PO DAILY 02/01/20 [History] No122/Iron/Folic Acid [ Multi Tablet] 1 each PO DAILY 02/01/20 [History] - CURRENT (IN HOUSE) MEDS Current Meds: Current Medications Discontinued Medications Magnesium Sulfate 2 gm/ Premix 50 mls @ 25 mls/hr IV ONETIME ONE Stop: 03/24/20 11:45 Last Admin: 03/24/20 12:28 Dose: 25 mls/hr Misoprostol (Cytotec) 200 mcg PO ONETIME STA Stop: 03/24/20 09:10 Last Admin: 03/24/20 09:15 Dose: 200 mcg
[2020-03-24] MEDS ORDERED: Ondansetron 4 MG/2 ML SDV ONE (13:52)
[2020-03-24] MEDS ORDERED: Propofol 200 MG/20 ML SDV ONE ×3 (13:52→14:30)
[2020-03-24] MEDS ORDERED: Midazolam 1 MG/ML 2 ML SDV ONE (13:53)
[2020-03-24] MEDS ORDERED: fentaNYL 100 MCG/2 ML SDV ONE (13:53)
[2020-03-24] MEDS ORDERED: Lidocaine 1% 4 ML ONE (13:58)
[2020-03-24] MEDS ORDERED: ceFAZolin 1 GM Vial ONE (14:06)
[2020-03-24] MEDS ORDERED: Methylergonovine 0.2 MG/1 ML Amp ONE (14:12)
[2020-03-24] MEDS ORDERED: fentaNYL 100 MCG/2 ML SDV IVPUSH PRN (15:08)
--- NOTE | 2020-03-24 15:10 | PCM.POSTAN ---
POST ANESTHESIA ASSESSMENT - MENTAL STATUS Mental Status: Alert, Oriented - VITAL SIGNS Vital Signs: Last Vital Signs Temp 36.3 C 03/24/20 13:45 Pulse 65 03/24/20 13:45 Resp 7 L 03/24/20 08:28 BP 104/59 L 03/24/20 13:45 Pulse Ox 100 03/24/20 08:28 - RESPIRATORY Respiratory Status: Respiratory Rate WNL, Airway Patent, O2 Saturation Stable, Supplemental Oxygen - CARDIOVASCULAR CV Status: Pulse Rate WNL, Blood Pressure Stable - GASTROINTESTINAL GI Status: No Symptoms - PAIN Pain Score: 3 - POST OP HYDRATION Hydration Status: Adequate & Stable - OBSERVATIONS Free Text/Narrative:: no anesthesia complications noted
[2020-03-24] MEDS ORDERED: Ibuprofen 600 MG Tab PO PRN ×2 (15:19→20:02)
[2020-03-24] MEDS ORDERED: Acetaminophen/oxyCODONE 325-5 MG Tab PO PRN ×2 (15:19)
--- NOTE | 2020-03-24 15:19 | PCM.OPNOTE ---
- General Post-Op/Procedure Note Date of Surgery/Procedure: 03/24/20 Operative Procedure(s): suction dilation and curettage Findings: 14 week size uterus, significant bleeding, small fragments of retained placenta. Pre Op Diagnosis: delayed hemorrhage Post-Op Diagnosis: Same Anesthesia Technique: MAC Primary Surgeon: Lulú Sunshine Pathology: Placental fragments Fluid Replacement, Intraop: 1,500 (1 u pRBC) Output, Urine Amount: 100 EBL in mLs: 775 Complications: None Condition: Good Free Text/Narrative:: Intake & Output 03/24/20 03/24/20 03/24/20 06:59 14:59 22:59 Intake Total 477 Balance 477 Taken to OR. MAC initiated. Prepped and draped in normal sterile fashion in lithotomy position. Anterior lip of cervix grasped with single toothed tenaculum. Curettage preformed with 11 mm curette. Placental fragments and clot evacuated. Bleeding increased. Observed with pressure. Methergine and TXA given. Bleeding slowed. Patient taken to PACU in good condition. 2 additional units pRBCs ordered.
[2020-03-24] MEDS ORDERED: Polyethylene Glycol 3350 Powder 17 GM Packet PO PRN (20:04)
[2020-03-24] MEDS: Acetaminophen/oxyCODONE 325-5 MG Tab PO PRN (20:33)
[2020-03-25] MEDS: Acetaminophen/oxyCODONE 325-5 MG Tab PO PRN ×2 (00:33→05:59)
--- NOTE | 2020-03-25 08:37 | PCM.DCSUM1 ---
Discharge Summary - Hospital Course Diagnosis: Stroke: No - Discharge Data Discharge Date: 03/25/20 Discharge Disposition: Home, Self-Care 01 Condition: Good - Referral to Home Health Primary Care Physician: Lulú Sunshine MD - Patient Summary/Data Operative Procedure(s) Performed: suction dilation and curettage - Patient Instructions Diet: Usual Diet as Tolerated Activity: No Strenuous Activities Activity, Other: pelvic rest 2 weeks Driving: Do Not Drive Showering/Bathing: May Shower Notify Provider of: Fever, Increased Pain, Swelling and Redness, Drainage, Nausea and/or Vomiting - Discharge Plan *PRESCRIPTION DRUG MONITORING PROGRAM REVIEWED*: Not Applicable *COPY OF PRESCRIPTION DRUG MONITORING REPORT IN PATIENT DAVID: Not Applicable Home Medications: Home Meds Ferrous Sulfate [Iron] 325 mg PO DAILY 02/01/20 [History] Patient Handouts: Steps to Quit Smoking Forms: ED Department Discharge Referrals: Lulú Sunshine MD [Primary Care Provider] - - Discharge Summary/Plan Comment DC Time >30 min.: No - General Info Date of Service: 03/25/20 Functional Status: Reports: Pain Controlled - Review of Systems General: Reports: No Symptoms HEENT: Reports: No Symptoms Pulmonary: Reports: No Symptoms Cardiovascular: Reports: No Symptoms Gastrointestinal: Reports: No Symptoms Genitourinary: Reports: No Symptoms Musculoskeletal: Reports: No Symptoms Skin: Reports: No Symptoms Neurological: Reports: No Symptoms Psychiatric: Reports: No Symptoms - Patient Data Vitals - Most Recent: Last Vital Signs Temp 36.3 C 03/25/20 07:52 Pulse 63 03/25/20 07:52 Resp 16 03/25/20 07:52 BP 95/68 03/25/20 07:52 Pulse Ox 99 03/25/20 07:52 Weight - Most Recent: 67.358 kg I&O - Last 24 hours: Intake & Output 03/24/20 03/25/20 03/25/20 22:59 06:59 14:59 Intake Total 1500 780 Output Total 100 2200 Balance 1400 -1420 Lab Results - Last 24 hrs: Laboratory Results - last 24 hr 03/24/20 03/24/20 03/24/20 Range/Units 08:49 08:49 08:49 WBC 5.44 (3.98-10.04) K/mm3 RBC 2.33 L (3.98-5.22) M/mm3 Hgb 6.1 L* (11.2-15.7) gm/dl Hct 21.0 L (34.1-44.9) % MCV 90.1 (79.4-94.8) fl MCH 26.2 (25.6-32.2) pg MCHC 29.0 L (32.2-35.5) g/dl RDW Std Deviation 45.0 (36.4-46.3) fL Plt Count 237 (182-369) K/mm3 MPV 10.5 (9.4-12.3) fl Neut % (Auto) (34.0-71.1) % Lymph % (Auto) (19.3-51.7) % [place] % (Auto) (4.7-12.5) % Eos % (Auto) (0.7-5.8) Baso % (Auto) (0.1-1.2) % Neut # (Auto) (1.56-6.13) K/mm3 Lymph # (Auto) (1.18-3.74) K/mm3 [place] # (Auto) (0.24-0.36) K/mm3 Eos # (Auto) (0.04-0.36) K/mm3 Baso # (Auto) (0.01-0.08) K/mm3 Neutrophils % (Manual) 55 (40-60) % Band Neutrophils % 0 (0-10) % Lymphocytes % (Manual) 36 (20-40) % Atypical Lymphs % 0 % Monocytes % (Manual) 7 (2-10) % Eosinophils % (Manual) 2 (0.7-5.8) % Basophils % (Manual) 0 L (0.1-1.2) Platelet Estimate Adequate Hypochromasia 2+ moderate Anisocytosis 1+ slight RBC Morph Comment Not Reportable PT (9.7-12.0) SECONDS INR APTT 31 (22-31) SECONDS Sodium 142 (136-145) mEq/L Potassium 4.0 (3.5-5.1) mEq/L Chloride 108 H (98-107) mEq/L Carbon Dioxide 24 (21-32) mEq/L Anion Gap 14.0 (5-15) BUN 6 L (7-18) mg/dL Creatinine 0.7 (0.55-1.02) mg/dL Est Cr Clr Drug Dosing TNP Estimated GFR (MDRD) > 60 (>60) mL/min BUN/Creatinine Ratio 8.6 L (14-18) Glucose 89 (74-106) mg/dL Calcium 7.9 L (8.5-10.1) mg/dL Magnesium 1.6 L (1.8-2.4) mg/dl Total Bilirubin 0.1 L (0.2-1.0) mg/dL AST 36 (15-37) U/L ALT 107 H (14-59) U/L Alkaline Phosphatase 84 (46-116) U/L Total Protein 5.9 L (6.4-8.2) g/dl Albumin 2.8 L (3.4-5.0) g/dl Globulin 3.1 gm/dL Albumin/Globulin Ratio 0.9 L (1-2) Urine Opiates Screen (LJYBVP=487) Ur Buprenorphine Scrn (CUTOFF=10) Ur Oxycodone Screen (RXQ3CF=348) Urine Methadone Screen (QFPAJR=820) Ur Propoxyphene Screen (ACXRWZ=890) Ur Barbiturates Screen (JSPBEF=477) Ur Tricyclics Screen (ZDRTYJ=779) Ur Phencyclidine Scrn (CUTOFF=25) Ur Amphetamine Screen (VKFOJB=701) U Methamphetamines Scrn (PXWRUA=752) U Benzodiazepines Scrn (ZCIUNT=023) U Cocaine Metab Screen (QRITWS=114) U Marijuana (THC) Screen (CUTOFF=50) Blood Type Gel Antibody Screen Crossmatch 03/24/20 03/24/20 03/24/20 Range/Units 08:49 08:49 09:40 WBC (3.98-10.04) K/mm3 RBC (3.98-5.22) M/mm3 Hgb (11.2-15.7) gm/dl Hct (34.1-44.9) % MCV (79.4-94.8) fl MCH (25.6-32.2) pg MCHC (32.2-35.5) g/dl RDW Std Deviation (36.4-46.3) fL Plt Count (182-369) K/mm3 MPV (9.4-12.3) fl Neut % (Auto) (34.0-71.1) % Lymph % (Auto) (19.3-51.7) % [place] % (Auto) (4.7-12.5) % Eos % (Auto) (0.7-5.8) Baso % (Auto) (0.1-1.2) % Neut # (Auto) (1.56-6.13) K/mm3 Lymph # (Auto) (1.18-3.74) K/mm3 [place] # (Auto) (0.24-0.36) K/mm3 Eos # (Auto) (0.04-0.36) K/mm3 Baso # (Auto) (0.01-0.08) K/mm3 Neutrophils % (Manual) (40-60) % Band Neutrophils % (0-10) % Lymphocytes % (Manual) (20-40) % Atypical Lymphs % % Monocytes % (Manual) (2-10) % Eosinophils % (Manual) (0.7-5.8) % Basophils % (Manual) (0.1-1.2) Platelet Estimate Hypochromasia Anisocytosis RBC Morph Comment PT 11.3 (9.7-12.0) SECONDS INR 1.04 APTT (22-31) SECONDS Sodium (136-145) mEq/L Potassium (3.5-5.1) mEq/L Chloride (98-107) mEq/L Carbon Dioxide (21-32) mEq/L Anion Gap (5-15) BUN (7-18) mg/dL Creatinine (0.55-1.02) mg/dL Est Cr Clr Drug Dosing Estimated GFR (MDRD) (>60) mL/min BUN/Creatinine Ratio (14-18) Glucose (74-106) mg/dL Calcium (8.5-10.1) mg/dL Magnesium (1.8-2.4) mg/dl Total Bilirubin (0.2-1.0) mg/dL AST (15-37) U/L ALT (14-59) U/L Alkaline Phosphatase (46-116) U/L Total Protein (6.4-8.2) g/dl Albumin (3.4-5.0) g/dl Globulin gm/dL Albumin/Globulin Ratio (1-2) Urine Opiates Screen Negative (CJTXMM=871) Ur Buprenorphine Scrn Negative (CUTOFF=10) Ur Oxycodone Screen Negative (MHY8NU=797) Urine Methadone Screen Negative (YLLZXW=063) Ur Propoxyphene Screen Negative (ZMMVTN=181) Ur Barbiturates Screen Negative (PPGSPM=798) Ur Tricyclics Screen Negative (SLYCHO=362) Ur Phencyclidine Scrn Negative (CUTOFF=25) Ur Amphetamine Screen Negative (USXVUE=590) U Methamphetamines Scrn Negative (FWOGGM=980) U Benzodiazepines Scrn Negative (XCRCRD=286) U Cocaine Metab Screen Negative (SURRRM=574) U Marijuana (THC) Screen Presumptive positive H (CUTOFF=50) Blood Type O NEGATIVE Gel Antibody Screen Positive Crossmatch See Detail 03/24/20 03/25/20 Range/Units 16:09 05:25 WBC 7.66 7.12 (3.98-10.04) K/mm3 RBC 3.38 L 3.31 L (3.98-5.22) M/mm3 Hgb 9.5 L D 9.2 L (11.2-15.7) gm/dl Hct 29.7 L 29.0 L (34.1-44.9) % MCV 87.9 87.6 (79.4-94.8) fl MCH 28.1 27.8 (25.6-32.2) pg MCHC 32.0 L 31.7 L (32.2-35.5) g/dl RDW Std Deviation 45.5 46.3 (36.4-46.3) fL Plt Count 184 191 (182-369) K/mm3 MPV 11.1 11.5 (9.4-12.3) fl Neut % (Auto) 64.8 (34.0-71.1) % Lymph % (Auto) 25.3 (19.3-51.7) % [place] % (Auto) 8.0 (4.7-12.5) % Eos % (Auto) 1.2 (0.7-5.8) Baso % (Auto) 0.3 (0.1-1.2) % Neut # (Auto) 4.97 (1.56-6.13) K/mm3 Lymph # (Auto) 1.94 (1.18-3.74) K/mm3 [place] # (Auto) 0.61 H (0.24-0.36) K/mm3 Eos # (Auto) 0.09 (0.04-0.36) K/mm3 Baso # (Auto) 0.02 (0.01-0.08) K/mm3 Neutrophils % (Manual) (40-60) % Band Neutrophils % (0-10) % Lymphocytes % (Manual) (20-40) % Atypical Lymphs % % Monocytes % (Manual) (2-10) % Eosinophils % (Manual) (0.7-5.8) % Basophils % (Manual) (0.1-1.2) Platelet Estimate Hypochromasia Anisocytosis RBC Morph Comment PT (9.7-12.0) SECONDS INR APTT (22-31) SECONDS Sodium (136-145) mEq/L Potassium (3.5-5.1) mEq/L Chloride (98-107) mEq/L Carbon Dioxide (21-32) mEq/L Anion Gap (5-15) BUN (7-18) mg/dL Creatinine (0.55-1.02) mg/dL Est Cr Clr Drug Dosing Estimated GFR (MDRD) (>60) mL/min BUN/Creatinine Ratio (14-18) Glucose (74-106) mg/dL Calcium (8.5-10.1) mg/dL Magnesium (1.8-2.4) mg/dl Total Bilirubin (0.2-1.0) mg/dL AST (15-37) U/L ALT (14-59) U/L Alkaline Phosphatase (46-116) U/L Total Protein (6.4-8.2) g/dl Albumin (3.4-5.0) g/dl Globulin gm/dL Albumin/Globulin Ratio (1-2) Urine Opiates Screen (VRPWPL=047) Ur Buprenorphine Scrn (CUTOFF=10) Ur Oxycodone Screen (JCO5OQ=840) Urine Methadone Screen (NDAFBL=435) Ur Propoxyphene Screen (OMEVLX=108) Ur Barbiturates Screen (HDPVTA=223) Ur Tricyclics Screen (DIJWGQ=414) Ur Phencyclidine Scrn (CUTOFF=25) Ur Amphetamine Screen (NELDWV=545) U Methamphetamines Scrn (LKLCLV=791) U Benzodiazepines Scrn (PVOAFR=692) U Cocaine Metab Screen (YJWGRQ=947) U Marijuana (THC) Screen (CUTOFF=50) Blood Type Gel Antibody Screen Crossmatch Med Orders - Current: Current Medications Ibuprofen (Motrin) 600 mg PO Q6H PRN PRN Reason: Pain Oxycodone/Acetaminophen (Percocet 325-5 Mg) 2 tab PO Q4H PRN PRN Reason: Pain (severe 7-10) Last Admin: 03/25/20 05:59 Dose: 2 tab Polyethylene Glycol (Miralax) 17 gm PO DAILY PRN PRN Reason: Constipation Discontinued Medications Cefazolin Sodium (Ancef) Confirm Administered Dose 2 gm .ROUTE .STK-MED ONE Stop: 03/24/20 14:07 Fentanyl (Sublimaze) Confirm Administered Dose 100 mcg .ROUTE .STK-MED ONE Stop: 03/24/20 13:54 Fentanyl (Sublimaze) 50 mcg IVPUSH Q5M PRN PRN Reason: Pain Stop: 03/24/20 19:00 Last Admin: 03/24/20 15:14 Dose: 50 mcg Magnesium Sulfate 2 gm/ Premix 50 mls @ 25 mls/hr IV ONETIME ONE Stop: 03/24/20 11:45 Last Admin: 03/24/20 12:28 Dose: 25 mls/hr Lidocaine HCl (Xylocaine-Mpf 1%) Confirm Administered Dose 4 mls @ as directed .ROUTE .STK-MED ONE Stop: 03/24/20 13:59 Ibuprofen (Motrin) 600 mg PO Q6H PRN PRN Reason: Pain (mild 1-3) Stop: 03/24/20 19:00 Methylergonovine Maleate (Methergine) Confirm Administered Dose 0.2 mg .ROUTE .STK-MED ONE Stop: 03/24/20 14:13 Midazolam HCl (Versed 1 Mg/Ml) Confirm Administered Dose 2 mg .ROUTE .STK-MED ONE Stop: 03/24/20 13:54 Misoprostol (Cytotec) 200 mcg PO ONETIME STA Stop: 03/24/20 09:10 Last Admin: 03/24/20 09:15 Dose: 200 mcg Ondansetron HCl (Zofran) Confirm Administered Dose 4 mg .ROUTE .STK-MED ONE Stop: 03/24/20 13:53 Oxycodone/Acetaminophen (Percocet 325-5 Mg) 2 tab PO Q4H PRN PRN Reason: Pain (severe 7-10) Stop: 03/24/20 19:00 Last Admin: 03/24/20 16:27 Dose: 2 tab Oxycodone/Acetaminophen (Percocet 325-5 Mg) 1 tab PO Q4H PRN PRN Reason: Pain (moderate 4-6) Stop: 03/24/20 19:00 Propofol (Diprivan 20 Ml) Confirm Administered Dose 200 mg .ROUTE .STK-MED ONE Stop: 03/24/20 13:53 Propofol (Diprivan 20 Ml) Confirm Administered Dose 200 mg .ROUTE .STK-MED ONE Stop: 03/24/20 14:06 Propofol (Diprivan 20 Ml) Confirm Administered Dose 200 mg .ROUTE .STK-MED ONE Stop: 03/24/20 14:31 Tranexamic Acid (Cyklokapron) Confirm Administered Dose 1,000 mg .ROUTE .STK- MED ONE Stop: 03/24/20 14:46 - Exam General: Reports: Alert, Oriented HEENT: Reports: Pupils Equal, Pupils Reactive, EOMI, Mucous Membr. Moist/Free [place] Neck: Reports: Supple Lungs: Reports: Clear to Auscultation, Normal Respiratory Effort Cardiovascular: Reports: Regular Rate, Regular Rhythm GI/Abdominal Exam: Normal Bowel Sounds, Soft, Non-Tender, No Organomegaly, No Distention, No Abnormal Bruit, No Mass, Pelvis Stable Back Exam: Reports: Normal Inspection, Full Range of Motion Extremities: Normal Inspection, Normal Range of Motion, Non-Tender, No Pedal Edema, Normal Capillary Refill Skin: Reports: Warm, Dry, Intact Wound/Incisions: Reports: Healing Well Neurological: Reports: No New Focal Deficit Psy/Mental Status: Reports: Alert, Normal Affect, Normal Mood
--- NOTE | 2020-03-25 10:35 | PCM48HPAN ---
Post Anesthesia Note - EVALUATION WITHIN 48HRS OF ANESTHETIC Vital Signs in Normal Range: Yes Patient Participated in Evaluation: Yes Respiratory Function Stable: Yes Airway Patent: Yes Cardiovascular Function Stable: Yes Hydration Status Stable: Yes Pain Control Satisfactory: Yes Nausea and Vomiting Control Satisfactory: Yes Mental Status Recovered: Yes Vital Signs: Last Vital Signs Temp 36.3 C 03/25/20 07:52 Pulse 63 03/25/20 07:52 Resp 16 03/25/20 07:52 BP 95/68 03/25/20 07:52 Pulse Ox 99 03/25/20 07:52 - COMMENTS/OBSERVATIONS Free Text/Narrative:: Patient awake and alert. Patient states she is ready to go home! Patient c/o some cramping, but otherwise feels well. Patient's color in face pink and looks well also.
== END 2020-03-25 10:35 | disposition home or self-care (01) ==
LOC: JD.ED 08:20 → JD.SDS 13:33 → JD.MS 15:19
PROVIDERS: ADMIT Obstetrics & Gynecology; ATTEND Obstetrics & Gynecology
DX: O72.2 Delayed and secondary postpartum hemorrhage (principal); O02.89 Other abnormal products of conception; D64.9 Anemia, unspecified; F17.210 Nicotine dependence, cigarettes, uncomplicated; F12.20 Cannabis dependence, uncomplicated; E83.42 Hypomagnesemia; Z79.899 Other long term (current) drug therapy
CPT/HCPCS: 36415; 36430; 59160; 76857; 80053; 80306; 83735; 85007; 85025; 85027; 85610; 85730; 86850; 86870; 86900; 86901; 86922; 96365; 96375; 99285; A9270; J0690; J2001; J2210; J2250; J2405; J2704; J3010; J3475; J7030; J7120; P9016; P9017; 00940; 86902; 86902-91; G0378

== ENCOUNTER 2023-09-06 21:43 | Inpatient (IN) | payer MEDICAID, OTHER ==
[2023-09-06 22:24] LABS: BASOPHILS PERCENT AUTO 0.3 % (0.0-1.0); EOSINOPHILS ABSOLUTE AUTO 0.2 K/mm3 (0.0-0.4); EOSINOPHILS PERCENT AUTO 1.3 % (0.0-6.0); HEMOGLOBIN 13.7 gm/dl (12.0-16.0); IMMATURE GRAN ABSOLUTE AUTO 0.02 K/mm3 (0.00-0.05); IMMATURE GRAN PERCENT AUTO 0.2 % (0.0-0.4); LYMPHOCYTES ABSOLUTE AUTO 2.7 K/mm3 (1.0-4.8); LYMPHOCYTES PERCENT AUTO 23.2 % (24.0-44.0); MEAN CORPUSCULAR HEMOGLOBIN 32.6 pg (28.0-32.0); MEAN CORPUSCULAR HGB CONC 34.3 g/dl (32.0-36.0); MEAN CORPUSCULAR VOLUME 95.2 fl (83.0-99.0); MEAN PLATELET VOLUME 9.7 fl (9.4-12.3); MONOCYTES ABSOLUTE AUTO 0.7 K/mm3 (0.0-0.8); MONOCYTES PERCENT AUTO 6.1 % (0.0-8.0); NEUTROPHILS ABSOLUTE AUTO 7.9 K/mm3 (1.8-7.7); NEUTROPHILS PERCENT AUTO 68.9 % (41.0-71.0); PLATELET COUNT,PLT 300 K/mm3 (150-400)
[2023-09-06 22:45] LABS: A/G RATIO 0.9 (1-2); ALBUMIN 3.8 g/dl (3.4-5.0); ANION GAP 10.6 (5-15); BILIRUBIN TOTAL 0.5 mg/dL (0.2-1.0); BUN/CREATININE RATIO 8.6 (14-18); CALCIUM 8.8 mg/dL (8.5-10.1); CREATININE 0.7 mg/dL (0.55-1.02); EST CRCL DRUG DOSING (CG) 115.01 mL/min; POTASSIUM,K 3.6 mEq/L (3.5-5.1); PROTEIN TOTAL,TP 7.9 g/dl (6.4-8.2)
[2023-09-06] MEDS ORDERED: fentaNYL 100 MCG/2 ML SDV IVPUSH ONE ×2 (22:50→23:54)
[2023-09-06] MEDS ORDERED: Iopamidol 612 MG/ML 100 ML Bottle IVPUSH ONE (22:55)
[2023-09-06 22:56] LABS: APPEARANCE,URINE CLOUDY (Clear); BILIRUBIN,URINE NEGATIVE (Negative); COLOR,URINE YELLOW (Yellow); GLUCOSE,URINE NEGATIVE (Negative); KETONES,URINE NEGATIVE (Negative); LEUKOCYTE ESTERASE,URINE 1+ (Negative); NITRITE,URINE POSITIVE (Negative); OCCULT BLOOD,URINE 2+ (Negative); PROTEIN,URINE 3+ (Negative); UROBILINOGEN,URINE 0.2 (0.2-1.0)
[2023-09-06] MEDS ORDERED: Lactated Ringers 1,000 ML IV SCH (23:00)
[2023-09-06 23:17] LABS: BACTERIA,URINE MANY /hpf (FEW); MUCUS,URINE FEW /hpf (FEW); RBC,URINE 20-30 /hpf (0-5); SQUAMOUS EPITHELIAL CELLS,UR 20-30 /hpf (0-5); WBC,URINE 50-75 /hpf (0-5)
[2023-09-06 23:18] LABS: TRICHOMONAS,URINE FEW (NOT SEEN)
[2023-09-07] MEDS ORDERED: cefTRIAXone 1 GM in Sodium Chloride 0.9% 100 ML IV ONE (00:02)
[2023-09-07] MEDS ORDERED: Sodium Chloride 0.9% 1,000 ML IV SCH (00:15)
[2023-09-07] MEDS ORDERED: Ondansetron 4 MG/2 ML SDV IV PRN (01:06)
[2023-09-07] MEDS ORDERED: Naloxone 0.4 MG/ML SDV IVPUSH PRN (01:06)
[2023-09-07] MEDS ORDERED: Morphine 2 MG/ML SYRINGE IVPUSH PRN (01:06)
[2023-09-07] MEDS ORDERED: Lactated Ringers 1,000 ML IV SCH (01:15)
[2023-09-07] MEDS: oxyCODONE 5 MG Tab PO PRN ×4 (01:48→23:47)
[2023-09-07] MEDS: Acetaminophen 325 MG Tab PO SCH ×5 (01:49→23:48)
[2023-09-07 05:39] LABS: HEMATOCRIT 34.3 % (37.0-47.0); MEAN CORPUSCULAR HEMOGLOBIN 32.8 pg (28.0-32.0); MEAN CORPUSCULAR HGB CONC 34.4 g/dl (32.0-36.0); MEAN CORPUSCULAR VOLUME 95.3 fl (83.0-99.0); MEAN PLATELET VOLUME 10.5 fl (9.4-12.3); PLATELET COUNT,PLT 264 K/mm3 (150-400); WHITE BLOOD CELL COUNT,WBC 11.99 K/mm3 (3.9-11.3)
[2023-09-07 05:55] LABS: HEMOGLOBIN 11.8 gm/dl (12.0-16.0)
[2023-09-07] MEDS ORDERED: EPINEPHrine 1 MG/ML SDV ONE (08:42)
[2023-09-07] MEDS ORDERED: Bupivacaine 0.5% 30 ML SDV ONE (08:42)
[2023-09-07] MEDS ORDERED: Lidocaine 1% 30 ML SDV ONE (08:42)
[2023-09-07] MEDS ORDERED: fentaNYL 100 MCG/2 ML SDV ONE (08:43)
[2023-09-07] MEDS ORDERED: Propofol 200 MG/20 ML SDV ONE ×2 (08:43→09:35)
[2023-09-07] MEDS ORDERED: Midazolam 1 MG/ML 2 ML SDV ONE (08:43)
[2023-09-07] MEDS ORDERED: Dexmedetomidine 200 MCG/2 ML SDV ONE (08:44)
[2023-09-07] MEDS ORDERED: ceFAZolin 2 GM in Sodium Chloride 0.9% 50 ML IV ONE (08:48)
[2023-09-07] MEDS ORDERED: ceFAZolin 2 GM Vial ONE (09:14)
[2023-09-07] MEDS ORDERED: Bacitracin Oint 15 GM Tube ONE (09:41)
[2023-09-07] MEDS ORDERED: Sodium Chloride 0.9% 1,000 ML IV ONE (21:35)
[2023-09-07] MEDS ORDERED: Ibuprofen 600 MG Tab PO PRN (22:17)
[2023-09-07] MEDS: Lactated Ringers 1,000 ML IV SCH (23:46)
[2023-09-07] MEDS: Docusate Sodium 100 MG Cap PO PRN (23:48)
[2023-09-08] MEDS: Acetaminophen 325 MG Tab PO SCH ×4 (01:19→18:22)
[2023-09-08 05:32] LABS: HEMATOCRIT 25.1 % (37.0-47.0)
[2023-09-08 06:04] LABS: HEMOGLOBIN 8.5 gm/dl (12.0-16.0)
[2023-09-08] MEDS: oxyCODONE 5 MG Tab PO PRN ×3 (06:32→21:05)
[2023-09-08] MEDS ORDERED: LORazepam 2 MG/ML SDV IVPUSH ONE (08:51)
[2023-09-08] MEDS: Sulfamethoxazole/Trimethoprim 800-160 MG Tab PO SCH ×2 (09:54→21:02)
[2023-09-08] MEDS ORDERED: Sodium Chloride 0.9% 250 ML ONE ×2 (10:10→15:44)
[2023-09-08] MEDS: Lactated Ringers 1,000 ML IV SCH (16:10)
[2023-09-08] MEDS: Docusate Sodium 100 MG Cap PO PRN (21:02)
[2023-09-09] MEDS: Acetaminophen 325 MG Tab PO SCH (00:56)
== END 2023-09-09 01:28 | disposition left against medical advice (07) | DRG 760 ==
LOC: JD.ED 21:43 → JD.MS 09-07 00:19
PROVIDERS: ADMIT Surgery; ATTEND Surgery
PROC: 0J9B0ZZ Drainage of Perineum Subcutaneous Tissue and Fascia, Open Approach (ICD-10-PCS; principal; 2023-09-07)
PROC: 30233N1 Transfusion of Nonautologous Red Blood Cells into Peripheral Vein, Percutaneous Approach (ICD-10-PCS; 2023-09-07)
DX: S30.23XA Contusion of vagina and vulva, initial encounter (principal); D62 Acute posthemorrhagic anemia; N30.00 Acute cystitis without hematuria; S30.0XXA Contusion of lower back and pelvis, initial encounter; K21.9 Gastro-esophageal reflux disease without esophagitis; F17.210 Nicotine dependence, cigarettes, uncomplicated; F41.9 Anxiety disorder, unspecified; Z79.899 Other long term (current) drug therapy; Z98.890 Other specified postprocedural states
CPT/HCPCS: 36415; 36430; 74177; 74177-26; 80053; 81001; 84703; 85014; 85018; 85025; 85027; 86850; 86900; 86901; 86922; 87086; 87088; 87186; 96361; 96374; 96376; 99284; 99284-25; A9270-GY; J0171; J0690; J0696; J2060; J2250; J2704; J3010; J3490; J7030; J7050; J7120; P9016; Q9967